=== PATIENT | female | born 1930 | race Caucasian/White ===

== ENCOUNTER 2016-07-26 09:30 | Outpatient (RCR) | payer MEDICARE, OTHER ==
[~2016-07-26 09:30] MED LIST: ALPR0.5T PO; ASCO100T6 PO; ASPI-345 PO; ATOR40TA2 PO; CALC-694 PO; DULO60CA7 PO; FISH1200 PO; FURO-125 PO; GBPN300C PO; HYDR-3811 PO; LEVO50TA6 PO; MIRT15TA98 PO; MULT1TAB80 PO; OMEP20CA6 PO; OXB5T PO; QTP100T PO
== END 2016-07-28 12:00 | disposition home or self-care (01) ==
LOC: CR 09:30
PROVIDERS: ATTEND Family Medicine
DX: R07.2 Precordial pain (principal); R55 Syncope and collapse
CPT/HCPCS: 93798